=== PATIENT | male | born 1930 | race Caucasian/White ===

== ENCOUNTER 2016-07-07 02:58 | Emergency (ER) | payer MEDICARE, OTHER ==
[2016-07-07 03:10] VITALS: BP 162/90
[2016-07-07 04:18] LABS: CHLORIDE,CL 106 mmol/L (101-111); SODIUM,NA 139 mmol/L (135-145)
--- NOTE | 2016-07-07 04:29 | EDM.PDOC ---
{null, ED HPI GENERAL MEDICAL PROBLEM - General Chief Complaint: Genitourinary Problem Stated Complaint: BLOOD IN URINE Time Seen by Provider: 07/07/16 03:10 Source of Information: Reports: Patient History Limitations: Reports: No Limitations - History of Present Illness INITIAL COMMENTS - FREE TEXT/NARRATIVE: c/o blood in urine past 2 days, worse tonight. Hx of similar intermittent over past 2 weeks. No fever or chills. Hx prostate CA. Severity: Moderate Associated Symptoms: Reports: No Other Symptoms - Related Data Allergies Allergy/AdvReac Type Severity Reaction Status Date / Time Sulfa (Sulfonamide Allergy unknown Verified 07/07/16 03:10 Antibiotics) Home Meds: Home Meds Aspirin [Ecotrin] 325 mg PO DAILY 07/01/13 [History] Benazepril [Lotensin] 40 mg PO BID 07/01/13 [History] Cholecalciferol (Vitamin D3) [Vitamin D3] 400 units PO DAILY 07/01/13 [History] Lovastatin [Mevacor] 20 mg PO DAILY 07/01/13 [History] Vitamin B Complex 1 each PO DAILY 07/01/13 [History] Vitamin B6-pyridOXINE [Vitamin B6] 0.5 tab PO DAILY 07/01/13 [History] Vitamin E 400 unit PO DAILY 07/01/13 [History] amLODIPine [Norvasc] 20 mg PO DAILY 07/01/13 [History] Past Medical History HEENT History: Reports: Hard of Hearing Cardiovascular History: Reports: Bypass, High Cholesterol, Hypertension, [place] Respiratory History: Reports: COPD Gastrointestinal History: Reports: Other (See Below) Other Gastrointestinal History: abd. hernia Musculoskeletal History: Reports: Back Pain, Chronic, Osteoarthritis Oncologic (Cancer) History: Reports: Prostate - Infectious Disease History Infectious Disease History: Reports: Chicken Pox, Shingles - Past Surgical History HEENT Surgical History: Reports: Other (See Below) Other HEENT Surgeries/Procedures: Ear surg. to drain left ear. Cardiovascular Surgical History: Reports: Coronary Artery Bypass GI Surgical History: Reports: Hernia, Abdominal Male Surgical History: Reports: Other (See Below) Other Male Surgeries/Procedures: prostate radiation 10 years ago. Seed treatment. Musculoskeletal Surgical History: Reports: Knee Replacement Social & Family History - Family History Family Medical History: Noncontributory - Tobacco Use Smoking Status *Q: Current Every Day Smoker Years of Tobacco use: 65 Packs/Tins Daily: 0.5 Second Hand Smoke Exposure: No - Caffeine Use Caffeine Use: Reports: Coffee - Alcohol Use Days Per Week of Alcohol Use: 0 - Recreational Drug Use Recreational Drug Use: No - Living Situation & Occupation Occupation: Retired ED ROS GENERAL - Review of Systems Review Of Systems: See Below Constitutional: Reports: No Symptoms HEENT: Reports: No Symptoms Respiratory: Reports: No Symptoms Cardiovascular: Reports: No Symptoms GI/Abdominal: Reports: No Symptoms : Reports: Hematuria, Urgency Musculoskeletal: Reports: No Symptoms Skin: Reports: No Symptoms Neurological: Reports: No Symptoms Psychiatric: Reports: No Symptoms ED EXAM, RENAL/ - Physical Exam Exam: See Below Exam Limited By: No Limitations General Appearance: Alert, No Apparent Distress, Anxious Ears: Normal External Exam, Hearing Loss Nose: Normal Inspection Throat/Mouth: Normal Inspection Head: Atraumatic, Normocephalic Neck: Normal Inspection Respiratory/Chest: No Respiratory Distress, Lungs Clear, Normal Breath Sounds Cardiovascular: Normal Peripheral Pulses, Regular Rate, Rhythm GI/Abdominal: Normal Bowel Sounds, Soft, Non-Tender Back Exam: No: CVA Tenderness (L), CVA Tenderness (R) Neurological: Alert, Oriented, Normal Cognition Psychiatric: Normal Affect Skin Exam: Warm, Dry, Intact, Normal Color Course - Vital Signs Last Recorded V/S: Last Vital Signs Temp 96.4 F 07/07/16 03:05 Pulse 52 L 07/07/16 03:05 Resp 18 07/07/16 03:05 BP 162/90 H 07/07/16 03:05 Pulse Ox 96 07/07/16 03:05 - Orders/Labs/Meds Labs: Laboratory Tests 07/07/16 07/07/16 07/07/16 Range/Units 03:25 03:54 03:54 WBC 10.9 H (5.0-10.0) 10^3/uL RBC 4.60 (4.6-6.2) 10^6/uL Hgb 14.0 (14.0-18.0) g/dL Hct 40.8 (40.0-54.0) % MCV 88.7 (80-100) fL MCH 30.4 (27.0-34.0) pg MCHC 34.3 (33.0-35.0) g/dL Plt Count 203 (150-450) 10^3/uL Neut % (Auto) 65.6 (42.2-75.2) % Lymph % (Auto) 21.9 (20.5-50.1) % [place] % (Auto) 7.2 (2-8) % Eos % (Auto) 4.8 H (1.0-3.0) % Baso % (Auto) 0.5 (0.0-1.0) % Sodium 139 (135-145) mmol/L Potassium 3.7 (3.6-5.0) mmol/L Chloride 106 (101-111) mmol/L Carbon Dioxide 28.0 (21.0-31.0) mmol/L Anion Gap 8.7 BUN 30 H (7-18) mg/dL Creatinine 1.0 (0.6-1.3) mg/dL Est Cr Clr Drug Dosing 59.61 mL/min Estimated GFR (MDRD) > 60 BUN/Creatinine Ratio 30.00 Glucose 100 (74-105) mg/dL Lactic Acid (0.5-2.2) mmol/L Calcium 9.5 (8.4-10.2) mg/dl Total Bilirubin 0.4 (0.2-1.0) mg/dL AST 19 (10-42) IU/L ALT 17 (10-60) IU/L Alkaline Phosphatase 62 (42-121) IU/L Total Protein 7.1 (6.7-8.2) g/dl Albumin 4.5 (3.2-5.5) g/dl Globulin 2.6 Albumin/Globulin Ratio 1.73 Urine Color Wendy (YELLOW) Urine Appearance Cloudy (CLEAR) Urine pH 7.0 (5.0-9.0) Ur Specific [place] 1.020 (1.005-1.030) Urine Protein 100 H (NEGATIVE) Urine Glucose (UA) Negative (NEGATIVE) Urine Ketones Negative (NEGATIVE) Urine Occult Blood Large H (NEGATIVE) Urine Nitrite Negative (NEGATIVE) Urine Bilirubin Negative (NEGATIVE) Urine Urobilinogen 1.0 (0.2-1.0) mg/dL Ur Leukocyte Esterase Negative (NEGATIVE) Urine RBC Packed H /HPF Urine WBC 0-5 (0-5/HPF) /HPF Ur Epithelial Cells Occasional /HPF /18/17 Range/Units 03:54 WBC (5.0-10.0) 10^3/uL RBC (4.6-6.2) 10^6/uL Hgb (14.0-18.0) g/dL Hct (40.0-54.0) % MCV (80-100) fL MCH (27.0-34.0) pg MCHC (33.0-35.0) g/dL Plt Count (150-450) 10^3/uL Neut % (Auto) (42.2-75.2) % Lymph % (Auto) (20.5-50.1) % [place] % (Auto) (2-8) % Eos % (Auto) (1.0-3.0) % Baso % (Auto) (0.0-1.0) % Sodium (135-145) mmol/L Potassium (3.6-5.0) mmol/L Chloride (101-111) mmol/L Carbon Dioxide (21.0-31.0) mmol/L Anion Gap BUN (7-18) mg/dL Creatinine (0.6-1.3) mg/dL Est Cr Clr Drug Dosing mL/min Estimated GFR (MDRD) BUN/Creatinine Ratio Glucose (74-105) mg/dL Lactic Acid 1.1 (0.5-2.2) mmol/L Calcium (8.4-10.2) mg/dl Total Bilirubin (0.2-1.0) mg/dL AST (10-42) IU/L ALT (10-60) IU/L Alkaline Phosphatase (42-121) IU/L Total Protein (6.7-8.2) g/dl Albumin (3.2-5.5) g/dl Globulin Albumin/Globulin Ratio Urine Color (YELLOW) Urine Appearance (CLEAR) Urine pH (5.0-9.0) Ur Specific [place] (1.005-1.030) Urine Protein (NEGATIVE) Urine Glucose (UA) (NEGATIVE) Urine Ketones (NEGATIVE) Urine Occult Blood (NEGATIVE) Urine Nitrite (NEGATIVE) Urine Bilirubin (NEGATIVE) Urine Urobilinogen (0.2-1.0) mg/dL Ur Leukocyte Esterase (NEGATIVE) Urine RBC /HPF Urine WBC (0-5/HPF) /HPF Ur Epithelial Cells /HPF - Re-Assessments/Exams Free Text/Narrative Re-Assessment/Exam: 07/07/16 04:43 Test results discussed with patient and need for follow up with PCP for further evaluation to determine cause of hematuria and probable referral to nephrology. To return if fever chills or difficulty voiding. Departure - Departure Time of Disposition: 04:28 Disposition: Home, Self-Care 01 Condition: fair Clinical Impression: Hematuria Proteinuria Qualifiers: Proteinuria type: unspecified Qualified Code(s): R80.9 - Proteinuria, unspecified - Discharge Information Instructions: Hematuria, Adult Forms: ED Department Discharge Additional Instructions: Follow up with primary care Urgent follow up if fever or chills or difficulty with voiding or feeling of not emptying bladder increase fluids if no restrictions due to heart issues }
== END 2016-07-07 04:44 | disposition home or self-care (01) ==
LOC: DL.ED 02:58
DX: R31.9 Hematuria, unspecified (principal); R80.9 Proteinuria, unspecified; J44.9 Chronic obstructive pulmonary disease, unspecified; E78.00 Pure hypercholesterolemia, unspecified; I10 Essential (primary) hypertension; I25.2 Old myocardial infarction; M19.90 Unspecified osteoarthritis, unspecified site; F17.210 Nicotine dependence, cigarettes, uncomplicated; Z79.899 Other long term (current) drug therapy; Z95.1 Presence of aortocoronary bypass graft; Z88.2 Allergy status to sulfonamides; Z79.82 Long term (current) use of aspirin
CPT/HCPCS: 36415; 80053; 81001; 83605; 85025; 99282; 99283

== ENCOUNTER 2016-08-14 01:53 | Emergency (ER) | payer MEDICARE, OTHER ==
--- NOTE | 2016-08-14 02:10 | EDM.PDOC ---
ED HPI GENERAL MEDICAL PROBLEM - General Chief Complaint: Genitourinary Problem Stated Complaint: BLOOD IN URINE Time Seen by Provider: 08/14/16 02:08 Source of Information: Reports: Patient History Limitations: Reports: No Limitations - History of Present Illness INITIAL COMMENTS - FREE TEXT/NARRATIVE: being Tx @ [facility] by Urologist. been having blood in urine but got worse tonight now unable to void and low abd hurts. Penis Pain Score (Numeric/FACES): 6 - Related Data Allergies Allergy/AdvReac Type Severity Reaction Status Date / Time Sulfa (Sulfonamide Allergy unknown Verified 08/14/16 02:14 Antibiotics) Home Meds: Home Meds Aspirin [Ecotrin] 325 mg PO DAILY 07/01/13 [History] Benazepril [Lotensin] 40 mg PO BID 07/01/13 [History] Cholecalciferol (Vitamin D3) [Vitamin D3] 400 units PO DAILY 07/01/13 [History] Lovastatin [Mevacor] 20 mg PO DAILY 07/01/13 [History] Vitamin B Complex 1 each PO DAILY 07/01/13 [History] Vitamin B6-pyridOXINE [Vitamin B6] 0.5 tab PO DAILY 07/01/13 [History] Vitamin E 400 unit PO DAILY 07/01/13 [History] amLODIPine [Norvasc] 20 mg PO DAILY 07/01/13 [History] Past Medical History HEENT History: Reports: Hard of Hearing Cardiovascular History: Reports: Bypass, High Cholesterol, Hypertension, [place] Respiratory History: Reports: COPD Gastrointestinal History: Reports: Other (See Below) Other Gastrointestinal History: abd. hernia Musculoskeletal History: Reports: Back Pain, Chronic, Osteoarthritis Oncologic (Cancer) History: Reports: Prostate - Infectious Disease History Infectious Disease History: Reports: Chicken Pox, Shingles - Past Surgical History HEENT Surgical History: Reports: Other (See Below) Other HEENT Surgeries/Procedures: Ear surg. to drain left ear. Cardiovascular Surgical History: Reports: Coronary Artery Bypass GI Surgical History: Reports: Hernia, Abdominal Male Surgical History: Reports: Other (See Below) Other Male Surgeries/Procedures: prostate radiation 10 years ago. Seed treatment. Musculoskeletal Surgical History: Reports: Knee Replacement Social & Family History - Family History Family Medical History: Noncontributory - Tobacco Use Smoking Status *Q: Current Every Day Smoker Years of Tobacco use: 65 Packs/Tins Daily: 0.5 Second Hand Smoke Exposure: No - Caffeine Use Caffeine Use: Reports: Coffee - Alcohol Use Days Per Week of Alcohol Use: 0 - Recreational Drug Use Recreational Drug Use: No - Living Situation & Occupation Occupation: Retired ED ROS GENERAL - Review of Systems Review Of Systems: ROS reveals no pertinent complaints other than HPI. ED EXAM, RENAL/ - Physical Exam Exam: See Below Exam Limited By: No Limitations General Appearance: Alert, WD/WN, Mild Distress, Other (bladder) Ears: Hearing Grossly Normal Throat/Mouth: Normal Voice, No Airway Compromise Head: Atraumatic Neck: Non-Tender, Full Range of Motion Respiratory/Chest: No Respiratory Distress Cardiovascular: Regular Rate, Rhythm GI/Abdominal: Tender, Other (suprapubic). No: Distended, Guarding, Rigid, Rebound Neurological: Alert, Oriented, Normal Cognition, Normal Gait, No Motor/Sensory Deficits Psychiatric: Normal Affect, Normal Mood Skin Exam: Warm, Dry Lymphatic: No Adenopathy Course - Vital Signs Last Recorded V/S: Last Vital Signs Temp 36.1 C 08/14/16 01:57 Pulse 92 08/14/16 01:57 Resp 20 08/14/16 01:57 BP 162/122 H 08/14/16 01:57 Pulse Ox 97 08/14/16 01:57 - Orders/Labs/Meds Labs: Laboratory Tests 08/14/16 Range/Units 02:05 Urine Color Red (YELLOW) Urine Appearance Turbid (CLEAR) Urine pH 6.5 (5.0-9.0) Ur Specific [place] >= 1.030 (1.005-1.030) Urine Protein >=300 H (NEGATIVE) Urine Glucose (UA) Negative (NEGATIVE) Urine Ketones Negative (NEGATIVE) Urine Occult Blood Large H (NEGATIVE) Urine Nitrite Negative (NEGATIVE) Urine Bilirubin Negative (NEGATIVE) Urine Urobilinogen 0.2 (0.2-1.0) mg/dL Ur Leukocyte Esterase Negative (NEGATIVE) Urine RBC Packed H /HPF Urine WBC 0-5 (0-5/HPF) /HPF Ur Epithelial Cells Rare /HPF Urine Bacteria Occasional (0-FEW/HPF) /HPF Meds: Medications Discontinued Medications Generic Name Dose Route Start Last Admin Trade Name Freq PRN Reason Stop Dose Admin Phenazopyridine HCl 95 mg 08/14/16 02:27 08/14/16 02:36 Urinary Pain Relief PO 08/14/16 02:28 95 mg ONETIME ONE Administration - Re-Assessments/Exams Free Text/Narrative Re-Assessment/Exam: 08/14/16 02:10 s/p auguste = much better 08/14/16 03:48 re-exam; states feels good now and wants to go home. Departure - Departure Time of Disposition: 03:48 Disposition: Home, Self-Care 01 Condition: Good Clinical Impression: Hematuria syndrome, Retention of urine - Discharge Information Instructions: [facility] Catheter Care, Adult Forms: ED Department Discharge Additional Instructions: 1) rest 2) see family doctor Monday for recheck 3) return if there is any change or concern rx given; pyridium 100mg tid prn x 12
[2016-08-14 02:12] VITALS: BP 162/122
[2016-08-14] MEDS ORDERED: Phenazopyridine 95 MG Tab PO ONE ×2 (02:27→04:09)
[2016-08-14] MEDS ORDERED: Phenazopyridine 95 MG Tab ONE (04:09)
[2016-08-14] MEDS ORDERED: Acetaminophen/HYDROcodone 325-10 MG Tab ONE (04:25)
[2016-08-14] MEDS ORDERED: Acetaminophen/HYDROcodone 325-10 MG Tab PO ONE (04:25)
== END 2016-08-14 04:43 | disposition home or self-care (01) ==
LOC: DL.ED 01:53
DX: R31.9 Hematuria, unspecified (principal); R33.9 Retention of urine, unspecified; E78.00 Pure hypercholesterolemia, unspecified; I25.2 Old myocardial infarction; I10 Essential (primary) hypertension; J44.9 Chronic obstructive pulmonary disease, unspecified; M19.90 Unspecified osteoarthritis, unspecified site; F17.210 Nicotine dependence, cigarettes, uncomplicated; Z79.82 Long term (current) use of aspirin; Z79.899 Other long term (current) drug therapy; Z95.1 Presence of aortocoronary bypass graft
CPT/HCPCS: 81001; 99283; A9270

== ENCOUNTER 2016-08-14 16:55 | Emergency (ER) | payer MEDICARE, OTHER ==
[2016-08-14] MEDS ORDERED: Lidocaine 2% Jelly 10 ML Urojet ONE (17:36)
[2016-08-14] MEDS ORDERED: HYDROmorphone 1 MG/ML Syringe IVPUSH ONE ×2 (17:59→20:02)
[2016-08-14] MEDS ORDERED: Sodium Chloride 0.9% 10 ML Syringe FLUSH PRN (17:59)
--- NOTE | 2016-08-14 18:09 | EDM.PDOC ---
<Philip Hunter - Last Filed: 08/14/16 19:02> ED HPI GENERAL MEDICAL PROBLEM - General Chief Complaint: Genitourinary Problem Stated Complaint: BLOOD IN URINE Time Seen by Provider: 08/14/16 17:40 Source of Information: Reports: Patient History Limitations: Reports: No Limitations - History of Present Illness INITIAL COMMENTS - FREE TEXT/NARRATIVE: Patient comes emergency department today quite uncomfortable with complaints of abdominal pain and things that his catheter that was placed last night is plugged. Patient came to the emergency department last night after he was unable to void at home. He had a Youssef catheter placed irrigated and was sent home with a Youssef leg bag. He noticed that there is quite a bit more blood and bleeding in the Youssef and has severe abdominal pain developed over the past couple of hours. He noticed that he has had more beto blood and clots that it was previously. Denies any weakness dizziness lightheadedness. He denies any chest pain or shortness of breath. He is unsure if he has on any blood thinners. She recently was seen at the urologist on Monday and had a cystoscopy and has had problems urinating since. Bladder Pain Score (Numeric/FACES): 10 - Related Data Allergies Allergy/AdvReac Type Severity Reaction Status Date / Time Sulfa (Sulfonamide Allergy unknown Verified 08/14/16 18:36 Antibiotics) Home Meds: Home Meds Aspirin [Ecotrin] 325 mg PO DAILY 07/01/13 [History] Benazepril [Lotensin] 40 mg PO BID 07/01/13 [History] Cholecalciferol (Vitamin D3) [Vitamin D3] 400 units PO DAILY 07/01/13 [History] Lovastatin [Mevacor] 20 mg PO DAILY 07/01/13 [History] Vitamin B Complex 1 each PO DAILY 07/01/13 [History] Vitamin B6-pyridOXINE [Vitamin B6] 0.5 tab PO DAILY 07/01/13 [History] Vitamin E 400 unit PO DAILY 07/01/13 [History] amLODIPine [Norvasc] 20 mg PO DAILY 07/01/13 [History] Past Medical History HEENT History: Reports: Hard of Hearing Cardiovascular History: Reports: Bypass, High Cholesterol, Hypertension, [place] Respiratory History: Reports: COPD Gastrointestinal History: Reports: Other (See Below) Other Gastrointestinal History: abd. hernia Musculoskeletal History: Reports: Back Pain, Chronic, Osteoarthritis Oncologic (Cancer) History: Reports: Prostate - Infectious Disease History Infectious Disease History: Reports: Chicken Pox, Shingles - Past Surgical History HEENT Surgical History: Reports: Other (See Below) Other HEENT Surgeries/Procedures: Ear surg. to drain left ear. Cardiovascular Surgical History: Reports: Coronary Artery Bypass GI Surgical History: Reports: Hernia, Abdominal Male Surgical History: Reports: Other (See Below) Other Male Surgeries/Procedures: prostate radiation 10 years ago. Seed treatment. Musculoskeletal Surgical History: Reports: Knee Replacement Social & Family History - Family History Family Medical History: Noncontributory - Tobacco Use Smoking Status *Q: Current Every Day Smoker Years of Tobacco use: 65 Packs/Tins Daily: 0.5 Second Hand Smoke Exposure: No - Caffeine Use Caffeine Use: Reports: Coffee - Alcohol Use Days Per Week of Alcohol Use: 0 - Recreational Drug Use Recreational Drug Use: No - Living Situation & Occupation Occupation: Retired ED ROS GENERAL - Review of Systems Review Of Systems: ROS reveals no pertinent complaints other than HPI. ED EXAM, GI/ABD - Physical Exam Exam: See Below Text/Narrative:: Patient is moaning in pain. Examination of the Youssef leg bag appears to be beto blood with a large amount of clots. Exam Limited By: No Limitations General Appearance: Alert, WD/WN, Anxious, Moderate Distress Throat/Mouth: Normal Inspection Head: Atraumatic, Normocephalic Neck: Normal Inspection, Supple Respiratory/Chest: No Respiratory Distress, Lungs Clear, Normal Breath Sounds, No Accessory Muscle Use, Chest Non-Tender Cardiovascular: Normal Peripheral Pulses, Regular Rate, Rhythm, Tachycardia GI/Abdominal: Normal Bowel Sounds, Distention (Primarily in the lower abdomen. Quite a bit of tenderness over the suprapubic region. There is no tenderness in the rest of the abdomen.) (Male) Exam: Other (Penis is unremarkable. There is a Youssef catheter in place that appears to have clots in the catheter. Scrotum is unremarkable.) Rectal (Males) Exam: Deferred Back Exam: Normal Inspection Extremities: Normal Inspection, Normal Capillary Refill Neurological: Alert, Oriented Psychiatric: Anxious Skin Exam: Dry, Intact, Pallor Lymphatic: No Adenopathy Course - Vital Signs Last Recorded V/S: Last Vital Signs Temp 36.6 C 08/14/16 17:00 Pulse 87 08/14/16 17:00 Resp 24 H 08/14/16 17:00 BP 132/88 08/14/16 17:00 Pulse Ox 96 08/14/16 17:00 - Orders/Labs/Meds Orders: Active Orders 24 hr Category Date Time Status Bladder Irrigation [RC] CONTINUOUS Care 08/14/16 17:47 Active Insert Urinary Catheter [OM.PC] Q24H Care 08/14/16 18:00 Ordered Peripheral IV Care [RC] . DIRECTED Care 08/14/16 17:59 Active Urinary Catheter Assessment [RC] ASDIRECTED Care 08/14/16 17:47 Active Sodium Chloride 0.9% [Saline Flush] Med 08/14/16 17:59 Active 10 ml FLUSH ASDIRECTED PRN Peripheral IV Insertion Adult [OM.PC] Stat Oth 08/14/16 17:59 Ordered Medication Orders Sodium Chloride (Saline Flush) 10 ml FLUSH ASDIRECTED PRN PRN Reason: Keep Vein Open Labs: Laboratory Tests 08/14/16 08/14/16 08/14/16 Range/Units 17:58 17:58 17:58 WBC 14.9 H (5.0-10.0) 10^3/uL RBC 4.10 L (4.6-6.2) 10^6/uL Hgb 12.8 L (14.0-18.0) g/dL Hct 36.8 L (40.0-54.0) % MCV 89.8 (80-100) fL MCH 31.2 (27.0-34.0) pg MCHC 34.8 (33.0-35.0) g/dL Plt Count 198 (150-450) 10^3/uL Neut % (Auto) 85.1 H (42.2-75.2) % Lymph % (Auto) 7.6 L (20.5-50.1) % [place] % (Auto) 6.2 (2-8) % Eos % (Auto) 0.9 L (1.0-3.0) % Baso % (Auto) 0.2 (0.0-1.0) % PT 9.8 (9.0-12.0) SEC INR 1.0 (0.9-1.2) Sodium 141 (135-145) mmol/L Potassium 3.9 (3.6-5.0) mmol/L Chloride 105 (101-111) mmol/L Carbon Dioxide 24.0 (21.0-31.0) mmol/L Anion Gap 15.9 BUN 27 H (7-18) mg/dL Creatinine 1.2 (0.6-1.3) mg/dL Est Cr Clr Drug Dosing TNP Estimated GFR (MDRD) 58 BUN/Creatinine Ratio 22.50 Glucose 167 H (74-105) mg/dL Calcium 9.3 (8.4-10.2) mg/dl Total Bilirubin 0.9 (0.2-1.0) mg/dL AST 18 (10-42) IU/L ALT 17 (10-60) IU/L Alkaline Phosphatase 68 (42-121) IU/L Total Protein 6.8 (6.7-8.2) g/dl Albumin 4.4 (3.2-5.5) g/dl Globulin 2.4 Albumin/Globulin Ratio 1.83 Meds: Medications Generic Name Dose Route Start Last Admin Trade Name Freq PRN Reason Stop Dose Admin Sodium Chloride 10 ml 08/14/16 17:59 Saline Flush FLUSH ASDIRECTED PRN Keep Vein Open Discontinued Medications Generic Name Dose Route Start Last Admin Trade Name Freq PRN Reason Stop Dose Admin Hydromorphone HCl 1 mg 08/14/16 17:59 08/14/16 18:06 Dilaudid IVPUSH 08/14/16 18:00 1 mg ONETIME ONE Administration Lidocaine HCl Confirm 08/14/16 17:36 Xylocaine 2% Jelly Administered 08/14/16 17:37 Dose 10 ml .ROUTE .STK-MED ONE - Re-Assessments/Exams Free Text/Narrative Re-Assessment/Exam: 08/14/16 18:08 Youssef catheter was initially irrigated by hand with a large amount of clots returning. Eventually a three-way Youssef catheter was placed and bladder irrigation was initiated. Patient was given 1 mg of Dilaudid for pain. 08/14/16 19:02 Care of the patient given to DR. Rose at this time. DIsposition and planning will be completed by Dr. Rose. Departure - Departure Disposition: DC/Tfer to [facility] 02 Clinical Impression: Retention of urine, Hematuria - Discharge Information Forms: Interfacility Transfer EMTALA <Arsh Rose - Last Filed: 08/14/16 20:01> Course - Re-Assessments/Exams Free Text/Narrative Re-Assessment/Exam: 08/14/16 19:[address] Grey @ who kindly accepted Pt. Departure - Departure Time of Disposition: 20:00 Condition: Good
[2016-08-14 18:25] LABS: CHLORIDE,CL 105 mmol/L (101-111); SODIUM,NA 141 mmol/L (135-145)
[2016-08-14 18:36] VITALS: BP 132/88
[2016-08-14] MEDS ORDERED: Ondansetron 4 MG/2 ML SDV IV ONE (20:19)
== END 2016-08-14 20:36 ==
LOC: DL.ED 16:55
DX: R31.9 Hematuria, unspecified (principal); R33.9 Retention of urine, unspecified; E78.00 Pure hypercholesterolemia, unspecified; I25.2 Old myocardial infarction; I10 Essential (primary) hypertension; J44.9 Chronic obstructive pulmonary disease, unspecified; M19.90 Unspecified osteoarthritis, unspecified site; F17.210 Nicotine dependence, cigarettes, uncomplicated; Z96.659 Presence of unspecified artificial knee joint; Z88.2 Allergy status to sulfonamides; Z79.899 Other long term (current) drug therapy; Z95.1 Presence of aortocoronary bypass graft; Z79.82 Long term (current) use of aspirin
CPT/HCPCS: 36415; 80053; 81001; 85025; 85610; 96374; 96375; 96376; 99283; 99284; A9270; J1170; J2405

== ENCOUNTER 2017-03-08 16:50 | Emergency (ER) | payer MEDICARE, OTHER ==
[2017-03-08 18:08] VITALS: BP 165/68
[2017-03-08 18:24] LABS: CHLORIDE,CL 104 mmol/L (101-111); SODIUM,NA 140 mmol/L (135-145)
--- NOTE | 2017-03-08 18:37 | EDM.PDOC ---
ED HPI GENERAL MEDICAL PROBLEM - General Chief Complaint: General Stated Complaint: CAME BY AMBULANCE, WEAKNESS Time Seen by Provider: 03/08/17 18:34 Source of Information: Reports: Patient History Limitations: Reports: No Limitations - History of Present Illness INITIAL COMMENTS - FREE TEXT/NARRATIVE: patient comes emergency Department today with with complaints of weakness has been going on for the past 2 weeks and chronically for the past 6 months - 2years since his bladder cancer treatments. He relates that he does drink approximately 2-3 glasses of water a day although he cannot drink as he has been recommended to in the past as he has to get up multiple times not only during the day but at night to urinate. He does complain of nocturia as well as dysuria although this has been going on for the past 2 years since he had treatment for bladder cancer. His last round of radiation and chemotherapy for his bladder cancer was in September 2016. He really has no increase in his dysuria or frequent urination. He denies any fever or chills. He complains of generalized weakness. No shortness of breath chest pain or cough. He is unsure if he received his influenza vaccine this year. He denies any abdominal pain distention or bloating. Denies any nausea or vomiting. He denies any flank pain. He lives at home alone in the apartment complexes here in [place]. He feels that he is somewhat dehydrated as he typically does this every couple of weeks as he does not drink enough fluids. - Related Data Allergies Allergy/AdvReac Type Severity Reaction Status Date / Time Sulfa (Sulfonamide Allergy unknown Verified 08/14/16 18:36 Antibiotics) Home Meds: Home Meds Aspirin [Ecotrin] 325 mg PO DAILY 07/01/13 [History] Benazepril [Lotensin] 40 mg PO BID 07/01/13 [History] Cholecalciferol (Vitamin D3) [Vitamin D3] 400 units PO DAILY 07/01/13 [History] Lovastatin [Mevacor] 20 mg PO DAILY 07/01/13 [History] Vitamin B6-pyridOXINE [Vitamin B6] 0.5 tab PO DAILY 07/01/13 [History] Vitamin E 400 unit PO DAILY 07/01/13 [History] Oxybutynin 1 tab PO TID 03/08/17 [History] Past Medical History HEENT History: Reports: Hard of Hearing Cardiovascular History: Reports: Bypass, High Cholesterol, Hypertension, [place] Respiratory History: Reports: COPD Gastrointestinal History: Reports: Other (See Below) Other Gastrointestinal History: abd. hernia Musculoskeletal History: Reports: Back Pain, Chronic, Osteoarthritis Oncologic (Cancer) History: Reports: Prostate - Infectious Disease History Infectious Disease History: Reports: Chicken Pox, Shingles - Past Surgical History HEENT Surgical History: Reports: Other (See Below) Other HEENT Surgeries/Procedures: Ear surg. to drain left ear. Cardiovascular Surgical History: Reports: Coronary Artery Bypass GI Surgical History: Reports: Hernia, Abdominal Male Surgical History: Reports: Other (See Below) Other Male Surgeries/Procedures: prostate radiation 10 years ago. Seed treatment. Musculoskeletal Surgical History: Reports: Knee Replacement Social & Family History - Family History Family Medical History: Noncontributory - Tobacco Use Smoking Status *Q: Current Some Day Smoker Years of Tobacco use: 65 Packs/Tins Daily: 0 Second Hand Smoke Exposure: No - Caffeine Use Caffeine Use: Reports: Coffee - Alcohol Use Days Per Week of Alcohol Use: 0 - Recreational Drug Use Recreational Drug Use: No - Living Situation & Occupation Occupation: Retired ED ROS GENERAL - Review of Systems Review Of Systems: ROS reveals no pertinent complaints other than HPI. ED EXAM, GENERAL - Physical Exam Exam: See Below Exam Limited By: No Limitations General Appearance: Alert, WD/WN Eye Exam: Bilateral Eye: Normal Inspection Ears: Normal External Exam, Normal Canal Ear Exam: Bilateral Ear: TM normal Nose: Normal Inspection, Normal Mucosa Throat/Mouth: Normal Inspection, Normal Lips, Normal Teeth, Other (mucous membranes dry. ) Head: Atraumatic, Normocephalic Neck: Normal Inspection, Supple, Non-Tender Respiratory/Chest: No Respiratory Distress, Lungs Clear, Normal Breath Sounds, No Accessory Muscle Use Cardiovascular: Normal Peripheral Pulses, Regular Rate, Rhythm, Other (Well healed vertical sternal incision old, Right upper chest port not accessed. ) Peripheral Pulses: 2+: Radial (R), Posterior Tibial (L), Posterior Tibial (R), Dorsalis Pedis (L), Dorsalis Pedis (R), 3+: Radial (L) GI/Abdominal: Normal Bowel Sounds, Soft, Non-Tender, No Distention (Male) Exam: Deferred Rectal (Males) Exam: Deferred Back Exam: Normal Inspection. No: CVA Tenderness (L), CVA Tenderness (R) Extremities: Normal Inspection, Normal Range of Motion, Normal Capillary Refill Neurological: Alert, Oriented, CN II-XII Intact, Normal Cognition, No Motor/ Sensory Deficits Psychiatric: Normal Affect, Normal Mood Skin Exam: Warm, Dry, Intact, Pallor (Mild) Lymphatic: No Adenopathy EKG INTERPRETATION EKG Date: 03/08/17 Time: 18:55 Rhythm: Other (Sinus anil) Rate (Beats/Min): 59 [place]: LAD-Left Sapello Deviation P-Wave: Present QRS: Normal ST-T: Other (Flipped T waves V4, V5, I AVL.) QT: Normal Comparison: NA - No Prior EKG Course - Vital Signs Last Recorded V/S: Last Vital Signs Temp 36.4 C 03/08/17 16:50 Pulse 74 03/08/17 16:50 Resp 22 H 03/08/17 16:50 BP 165/68 H 03/08/17 16:50 Pulse Ox 97 03/08/17 16:50 - Orders/Labs/Meds Orders: Active Orders 24 hr Category Date Time Status EKG 12 Lead [EKG Documentation Completion] [RC] URGENT Care 03/08/17 18:31 Active CULTURE BLOOD [BC] Stat Lab 03/08/17 18:51 Received Blood Culture x2 Reflex Set [OM.PC] Stat Oth 03/08/17 21:22 Ordered Labs: Laboratory Tests 03/08/17 03/08/17 03/08/17 Range/Units 17:56 17:56 17:56 WBC 6.8 (5.0-10.0) 10^3/uL RBC 3.94 L (4.6-6.2) 10^6/uL Hgb 11.7 L (14.0-18.0) g/dL Hct 35.0 L (40.0-54.0) % MCV 88.8 (80-100) fL MCH 29.7 (27.0-34.0) pg MCHC 33.4 (33.0-35.0) g/dL Plt Count 192 (150-450) 10^3/uL Neut % (Auto) 71.0 (42.2-75.2) % Lymph % (Auto) 17.7 L (20.5-50.1) % [place] % (Auto) 6.6 (2-8) % Eos % (Auto) 4.1 H (1.0-3.0) % Baso % (Auto) 0.6 (0.0-1.0) % Sodium 140 (135-145) mmol/L Potassium 3.9 (3.6-5.0) mmol/L Chloride 104 (101-111) mmol/L Carbon Dioxide 28.0 (21.0-31.0) mmol/L Anion Gap 11.9 BUN 22 H (7-18) mg/dL Creatinine 1.0 (0.6-1.3) mg/dL Est Cr Clr Drug Dosing 58.57 mL/min Estimated GFR (MDRD) > 60 BUN/Creatinine Ratio 22.00 Glucose 149 H (74-105) mg/dL Lactic Acid (0.5-2.2) mmol/L Calcium 9.1 (8.4-10.2) mg/dl Total Bilirubin 0.6 (0.2-1.0) mg/dL AST 21 (10-42) IU/L ALT 15 (10-60) IU/L Alkaline Phosphatase 49 (42-121) IU/L Troponin I < 0.02 (0.00-0.02) ng/ml C-Reactive Protein (0.0-1.3) mg/dL Total Protein 6.2 L (6.7-8.2) g/dl Albumin 4.0 (3.2-5.5) g/dl Globulin 2.2 Albumin/Globulin Ratio 1.82 Urine Color (YELLOW) Urine Appearance (CLEAR) Urine pH (5.0-9.0) Ur Specific [place] (1.005-1.030) Urine Protein (NEGATIVE) Urine Glucose (UA) (NEGATIVE) Urine Ketones (NEGATIVE) Urine Occult Blood (NEGATIVE) Urine Nitrite (NEGATIVE) Urine Bilirubin (NEGATIVE) Urine Urobilinogen (0.2-1.0) mg/dL Ur Leukocyte Esterase (NEGATIVE) Urine RBC /HPF Urine WBC (0-5/HPF) /HPF Ur Epithelial Cells /HPF Urine Bacteria (0-FEW/HPF) /HPF Urine Mucus /LPF 03/08/17 03/08/17 03/08/17 Range/Units 17:56 18:51 19:14 WBC (5.0-10.0) 10^3/uL RBC (4.6-6.2) 10^6/uL Hgb (14.0-18.0) g/dL Hct (40.0-54.0) % MCV (80-100) fL MCH (27.0-34.0) pg MCHC (33.0-35.0) g/dL Plt Count (150-450) 10^3/uL Neut % (Auto) (42.2-75.2) % Lymph % (Auto) (20.5-50.1) % [place] % (Auto) (2-8) % Eos % (Auto) (1.0-3.0) % Baso % (Auto) (0.0-1.0) % Sodium (135-145) mmol/L Potassium (3.6-5.0) mmol/L Chloride (101-111) mmol/L Carbon Dioxide (21.0-31.0) mmol/L Anion Gap BUN (7-18) mg/dL Creatinine (0.6-1.3) mg/dL Est Cr Clr Drug Dosing mL/min Estimated GFR (MDRD) BUN/Creatinine Ratio Glucose (74-105) mg/dL Lactic Acid 0.8 (0.5-2.2) mmol/L Calcium (8.4-10.2) mg/dl Total Bilirubin (0.2-1.0) mg/dL AST (10-42) IU/L ALT (10-60) IU/L Alkaline Phosphatase (42-121) IU/L Troponin I (0.00-0.02) ng/ml C-Reactive Protein < 0.5 (0.0-1.3) mg/dL Total Protein (6.7-8.2) g/dl Albumin (3.2-5.5) g/dl Globulin Albumin/Globulin Ratio Urine Color Yellow (YELLOW) Urine Appearance Clear (CLEAR) Urine pH 5.5 (5.0-9.0) Ur Specific [place] 1.025 (1.005-1.030) Urine Protein 100 H (NEGATIVE) Urine Glucose (UA) Negative (NEGATIVE) Urine Ketones Negative (NEGATIVE) Urine Occult Blood Moderate H (NEGATIVE) Urine Nitrite Negative (NEGATIVE) Urine Bilirubin Negative (NEGATIVE) Urine Urobilinogen 0.2 (0.2-1.0) mg/dL Ur Leukocyte Esterase Negative (NEGATIVE) Urine RBC 75-100 H /HPF Urine WBC 0-5 (0-5/HPF) /HPF Ur Epithelial Cells Few /HPF Urine Bacteria Few (0-FEW/HPF) /HPF Urine Mucus Few H /LPF Meds: Medications Discontinued Medications Generic Name Dose Route Start Last Admin Trade Name D[place] PRN Reason Stop Dose Admin Sodium Chloride 1,000 mls @ 999 mls/hr 03/08/17 18:45 03/08/17 18:56 Normal Saline IV 999 mls/hr ASDIRECTED JENN Administration - Re-Assessments/Exams Free Text/Narrative Re-Assessment/Exam: 03/08/17 19:34 The patient would really like to stay in the hospital as his chronic weakness he can not take anymore. 03/09/17 the laboratory evaluation of this patient is rather unremarkable. He does feel better after his hydration of fluid. I did explain to him that I do not find any cause at this time to put him in the hospital. He does not appear dehydrated nor do I find any other causes of his complaints of weakness which appeared to be rather chronic for him. We'll discharge home at this time for further evaluation with his primary care provider to determine if he needs placement in a assisted living center. Departure - Departure Time of Disposition: 21:55 Disposition: Home, Self-Care 01 Clinical Impression: Weakness generalized - Discharge Information Instructions: Weakness, [id number] Forms: ED Department Discharge Additional Instructions: Push oral fluids over the next few days. Return to the ED if new or worsening symptoms. Follow up with primary care next available. Return to the ED if new or worsening symptoms. - My Orders Last 24 Hours: My Active Orders 03/08/17 18:31 EKG 12 Lead [EKG Documentation Completion] [RC] URGENT 03/08/17 18:51 CULTURE BLOOD [BC] Stat 03/08/17 21:22 Blood Culture x2 Reflex Set [OM.PC] Stat - Assessment/Plan Last 24 Hours: My Active Orders 03/08/17 18:31 EKG 12 Lead [EKG Documentation Completion] [RC] URGENT 03/08/17 18:51 CULTURE BLOOD [BC] Stat 03/08/17 21:22 Blood Culture x2 Reflex Set [OM.PC] Stat Assessment:: Acute on chronic weakness. Plan: Push oral fluids over the next few days. Return to the ED if new or worsening symptoms. Follow up with primary care next available. Return to the ED if new or worsening symptoms.
[2017-03-08] MEDS ORDERED: Sodium Chloride 0.9% 1,000 ML IV SCH (18:45)
--- NOTE | 2017-03-15 09:56 | EKG ---
03/08/2017- [facility] - FINDINGS: EKG, per my reading, shows sinus rhythm at the rate of 59. MODL /[id number]
== END 2017-03-08 22:44 | disposition home or self-care (01) ==
LOC: DL.ED 16:50
DX: R53.1 Weakness (principal); E78.00 Pure hypercholesterolemia, unspecified; I10 Essential (primary) hypertension; F17.210 Nicotine dependence, cigarettes, uncomplicated; Z88.2 Allergy status to sulfonamides; Z79.82 Long term (current) use of aspirin; Z79.899 Other long term (current) drug therapy
CPT/HCPCS: 36415; 71046; 80053; 81001; 83605; 84484; 85025; 86140; 87040; 87804; 93005; 93010; 99285; J7030; 99284

== ENCOUNTER 2017-03-27 02:05 | Emergency (ER) | payer MEDICARE, OTHER ==
[2017-03-27 02:05] VITALS: BP 199/104
--- NOTE | 2017-03-27 02:34 | EDM.PDOC ---
ED HPI GENERAL MEDICAL PROBLEM - General Chief Complaint: Genitourinary Problem Stated Complaint: ER Time Seen by Provider: 03/27/17 02:28 Source of Information: Reports: Patient History Limitations: Reports: No Limitations - History of Present Illness INITIAL COMMENTS - FREE TEXT/NARRATIVE: This 86 yo male patient reports to the ED with bloody urine, frequent urination and pain in his distal penis. The patient reports his symptoms started at about 2000 last night. The patient reports he took a Tylenol at about 0030 which reduced his pain. The patient reports he had similar pain when he was in [facility] [place] which got better with Tylenol. The patient reports he normally takes Tylenol 4 times per day for pain. Onset Date: 03/26/17 Onset Time: 20:00 Duration: Constant Location: Reports: Other (distal penis (burning)) Quality: Reports: Ache, Burning Severity: Moderate Improves with: Reports: None Worsens with: Reports: None Associated Symptoms: Reports: No Other Symptoms Treatments TECHNICAL MANAGER: Reports: Acetaminophen Bladder Pain Score (Numeric/FACES): 10 - Related Data Allergies Allergy/AdvReac Type Severity Reaction Status Date / Time Sulfa (Sulfonamide Allergy unknown Verified 08/14/16 18:36 Antibiotics) Home Meds: Home Meds Aspirin [Ecotrin] 325 mg PO DAILY 07/01/13 [History] Benazepril [Lotensin] 40 mg PO BID 07/01/13 [History] Cholecalciferol (Vitamin D3) [Vitamin D3] 400 units PO DAILY 07/01/13 [History] Lovastatin [Mevacor] 20 mg PO DAILY 07/01/13 [History] Vitamin B6-pyridOXINE [Vitamin B6] 0.5 tab PO DAILY 07/01/13 [History] Vitamin E 400 unit PO DAILY 07/01/13 [History] Oxybutynin 1 tab PO TID 03/08/17 [History] Past Medical History HEENT History: Reports: Hard of Hearing Cardiovascular History: Reports: Bypass, High Cholesterol, Hypertension, [place] Respiratory History: Reports: COPD Gastrointestinal History: Reports: Other (See Below) Other Gastrointestinal History: abd. hernia Musculoskeletal History: Reports: Back Pain, Chronic, Osteoarthritis Oncologic (Cancer) History: Reports: Prostate - Infectious Disease History Infectious Disease History: Reports: Chicken Pox, Shingles - Past Surgical History HEENT Surgical History: Reports: Other (See Below) Other HEENT Surgeries/Procedures: Ear surg. to drain left ear. Cardiovascular Surgical History: Reports: Coronary Artery Bypass GI Surgical History: Reports: Hernia, Abdominal Male Surgical History: Reports: Other (See Below) Other Male Surgeries/Procedures: prostate radiation 10 years ago. Seed treatment. Musculoskeletal Surgical History: Reports: Knee Replacement Social & Family History - Family History Family Medical History: Noncontributory - Tobacco Use Smoking Status *Q: Former Smoker Years of Tobacco use: 65 Packs/Tins Daily: 0 Used Tobacco, but Quit: Yes Month Tobacco Last Used: mar 2017 Second Hand Smoke Exposure: No - Caffeine Use Caffeine Use: Reports: Coffee - Alcohol Use Days Per Week of Alcohol Use: 0 - Recreational Drug Use Recreational Drug Use: No - Living Situation & Occupation Occupation: Retired ED ROS GENERAL - Review of Systems Review Of Systems: ROS reveals no pertinent complaints other than HPI. ED EXAM, RENAL/ - Physical Exam Exam: See Below Exam Limited By: No Limitations General Appearance: Alert, WD/WN, Moderate Distress, Thin Eye Exam: Bilateral Eye: EOMI, Normal Inspection, PERRL Ears: Normal External Exam, Normal Canal, Hearing Grossly Normal, Normal TMs Nose: Normal Inspection, Normal Mucosa, No Blood Throat/Mouth: Normal Inspection, Normal Lips, Normal Teeth, Normal Gums, Normal Oropharynx, Normal Voice, No Airway Compromise Head: Atraumatic, Normocephalic Neck: Normal Inspection, Supple, Non-Tender, Full Range of Motion Respiratory/Chest: No Respiratory Distress, Lungs Clear, Normal Breath Sounds, No Accessory Muscle Use, Chest Non-Tender Cardiovascular: Normal Peripheral Pulses, Regular Rate, Rhythm, No Edema, No Gallop, No JVD, No Murmur, No Rub GI/Abdominal: Normal Bowel Sounds, Soft, No Organomegaly, No Distention, No Abnormal Bruit, No Mass, Tender (mild lower abdominal tenderness to palpation) (Male) Exam: No Hernia, Other (The patient has excoriations to his distal penis, there was a small amount of bloody urine from his penis) Rectal (Males) Exam: Deferred Back Exam: Normal Inspection, Full Range of Motion, NT Extremities: Normal Inspection, Normal Range of Motion, Non-Tender, Normal Capillary Refill, No Pedal Edema Neurological: Alert, Oriented, CN II-XII Intact, Normal Cognition, Normal Gait, Normal Reflexes, No Motor/Sensory Deficits Psychiatric: Normal Affect, Normal Mood Skin Exam: Warm, Dry, Intact, Normal Color, No Rash Lymphatic: No Adenopathy Course - Vital Signs Last Recorded V/S: Last Vital Signs Temp 36.3 C 03/27/17 02:02 Pulse 92 03/27/17 02:02 Resp 20 03/27/17 02:02 BP 199/104 H 03/27/17 02:02 Pulse Ox 99 03/27/17 02:02 - Orders/Labs/Meds Orders: Active Orders 24 hr Category Date Time Status UA W/MICROSCOPIC [URIN] Stat Lab 03/27/17 02:06 Uncollected Labs: Laboratory Tests 03/27/17 03/27/17 Range/Units 02:15 02:15 WBC 14.5 H (5.0-10.0) 10^3/uL RBC 4.37 L (4.6-6.2) 10^6/uL Hgb 13.0 L (14.0-18.0) g/dL Hct 38.2 L (40.0-54.0) % MCV 87.4 (80-100) fL MCH 29.7 (27.0-34.0) pg MCHC 34.0 (33.0-35.0) g/dL Plt Count 238 (150-450) 10^3/uL Neut % (Auto) 73.6 (42.2-75.2) % Lymph % (Auto) 16.6 L (20.5-50.1) % [place] % (Auto) 7.0 (2-8) % Eos % (Auto) 2.5 (1.0-3.0) % Baso % (Auto) 0.3 (0.0-1.0) % Sodium 141 (135-145) mmol/L Potassium 3.7 (3.6-5.0) mmol/L Chloride 105 (101-111) mmol/L Carbon Dioxide 26.0 (21.0-31.0) mmol/L Anion Gap 13.7 BUN 30 H (7-18) mg/dL Creatinine 1.2 (0.6-1.3) mg/dL Est Cr Clr Drug Dosing 48.81 mL/min Estimated GFR (MDRD) 58 BUN/Creatinine Ratio 25.00 Glucose 128 H (74-105) mg/dL Calcium 9.2 (8.4-10.2) mg/dl Total Bilirubin 0.3 (0.2-1.0) mg/dL AST 22 (10-42) IU/L ALT 23 (10-60) IU/L Alkaline Phosphatase 64 (42-121) IU/L Total Protein 7.3 (6.7-8.2) g/dl Albumin 4.5 (3.2-5.5) g/dl Globulin 2.8 Albumin/Globulin Ratio 1.61 Meds: Medications Discontinued Medications Generic Name Dose Route Start Last Admin Trade Name Freq PRN Reason Stop Dose Admin Hydrocodone Bitart/Acetaminophen 1 tab 03/27/17 02:53 03/27/17 03:00 [place] 325-5 Mg PO 03/27/17 02:54 1 tab ONETIME ONE Administration Departure - Departure Time of Disposition: 03:00 Disposition: Home, Self-Care 01 Condition: Fair Clinical Impression: Gross hematuria - Discharge Information Forms: Interfacility Transfer EMTALA Care Plan Goals: Discussed the examination, history and lab results with Dr. Chan (Hospitalist with [facility] in [place]). Dr. Chan accepted the patient for continued evaluation and further management. The patient will be transported by [facility]. - My Orders Last 24 Hours: My Active Orders 03/27/17 02:06 UA W/MICROSCOPIC [URIN] Stat - Assessment/Plan Last 24 Hours: My Active Orders 03/27/17 02:06 UA W/MICROSCOPIC [URIN] Stat
[2017-03-27] MEDS ORDERED: Acetaminophen/HYDROcodone 325-5 MG Tab PO ONE (02:53)
== END 2017-03-27 03:34 | disposition home or self-care (01) ==
LOC: DL.ED 02:05
DX: R31.0 Gross hematuria (principal); E78.00 Pure hypercholesterolemia, unspecified; I10 Essential (primary) hypertension; Z88.2 Allergy status to sulfonamides; Z79.82 Long term (current) use of aspirin; Z79.899 Other long term (current) drug therapy; Z87.891 Personal history of nicotine dependence
CPT/HCPCS: 36415; 80053; 85025; 99284; A9270; 99283